=== PATIENT | female | born 1965 | race African-American/Black ===

== ENCOUNTER → 2016-12-11 | Outpatient (CLI) | payer BC ==
[2016-12-11 16:00] LABS: HEMATOCRIT 25.5 % (36.0-47.0); HEMOGLOBIN 8.4 g/dL (12.0-15.5); HGB HCT DIFFERENCE -0.3; MEAN CORPUSCULAR HEMOGLOBIN 28.9 pg (27.0-33.4); MEAN CORPUSCULAR HGB CONC 32.9 g/dL (32.0-36.0); MEAN CORPUSCULAR VOLUME 88 fl (80-97); WHITE BLOOD COUNT 1.7 10^3/uL (4.0-10.5)
== END ==
LOC: OD 14:50
PROVIDERS: ATTEND Internal Medicine Medical Oncology
DX: C92.10 Chronic myeloid leukemia, BCR/ABL-positive, not having achieved remission (principal); D70.9 Neutropenia, unspecified
CPT/HCPCS: 36415; 86850; 86870; 86900; 86901

== ENCOUNTER → 2019-04-15 | Outpatient (CLI) | payer BC ==
[2019-04-15 16:26] LABS: INTERNATIONAL RATION (INR) 1.04; PROTHROMBIN TIME 13.6 SEC (11.4-15.4)
== END ==
LOC: OD 15:30
PROVIDERS: ATTEND Internal Medicine
DX: I48.91 Unspecified atrial fibrillation (principal)
CPT/HCPCS: 36415; 85610

== ENCOUNTER → 2019-04-20 | Outpatient (CLI) | payer BC ==
[2019-04-20 11:44] LABS: INTERNATIONAL RATION (INR) 1.16; PROTHROMBIN TIME 14.8 SEC (11.4-15.4)
== END ==
LOC: OD 10:35
PROVIDERS: ATTEND Internal Medicine
DX: I48.91 Unspecified atrial fibrillation (principal)
CPT/HCPCS: 36415; 85610

== ENCOUNTER → 2019-04-23 | Outpatient (CLI) | payer BC ==
[2019-04-23 11:45] LABS: PROTHROMBIN TIME 20.2 SEC (11.4-15.4)
== END ==
LOC: OD 11:04
PROVIDERS: ATTEND Internal Medicine
DX: I48.91 Unspecified atrial fibrillation (principal)
CPT/HCPCS: 36415; 85610

== ENCOUNTER → 2019-04-30 | Outpatient (CLI) | payer BC ==
[2019-04-30 15:28] LABS: INTERNATIONAL RATION (INR) 2.45
== END ==
LOC: OD 11:10
PROVIDERS: ATTEND Internal Medicine
DX: I48.91 Unspecified atrial fibrillation (principal)
CPT/HCPCS: 36415; 85610; 85730

== ENCOUNTER → 2019-05-06 | Outpatient (CLI) | payer BC ==
[2019-05-06 10:57] LABS: INTERNATIONAL RATION (INR) 2.72; PROTHROMBIN TIME 29.4 SEC (11.4-15.4)
== END ==
LOC: OD 10:00
PROVIDERS: ATTEND Internal Medicine
DX: I48.91 Unspecified atrial fibrillation (principal)
CPT/HCPCS: 36415; 85610

== ENCOUNTER → 2019-05-14 | Outpatient (CLI) | payer BC ==
[2019-05-14 12:47] LABS: INTERNATIONAL RATION (INR) 2.21; PROTHROMBIN TIME 24.9 SEC (11.4-15.4)
== END ==
LOC: OD 11:31
PROVIDERS: ATTEND Internal Medicine
DX: I48.91 Unspecified atrial fibrillation (principal)
CPT/HCPCS: 36415; 85610

== ENCOUNTER → 2019-06-19 | Outpatient (CLI) | payer BC ==
[2019-06-19 10:22] LABS: INTERNATIONAL RATION (INR) 2.08; PROTHROMBIN TIME 23.7 SEC (11.4-15.4)
== END ==
LOC: OD 09:18
PROVIDERS: ATTEND Internal Medicine
DX: I48.91 Unspecified atrial fibrillation (principal)
CPT/HCPCS: 36415; 85610

== ENCOUNTER → 2019-07-16 | Outpatient (CLI) | payer BC ==
[2019-07-16 14:25] LABS: INTERNATIONAL RATION (INR) 2.13; PROTHROMBIN TIME 24.2 SEC (11.4-15.4)
== END ==
LOC: OD 13:43
PROVIDERS: ATTEND Internal Medicine
DX: I48.91 Unspecified atrial fibrillation (principal)
CPT/HCPCS: 36415; 85610

== ENCOUNTER → 2019-08-12 | Outpatient (CLI) | payer BC ==
[2019-08-12 13:20] LABS: INTERNATIONAL RATION (INR) 1.44; PROTHROMBIN TIME 17.7 SEC (11.4-15.4)
== END ==
LOC: OD 11:48
PROVIDERS: ATTEND Internal Medicine
DX: I48.91 Unspecified atrial fibrillation (principal)
CPT/HCPCS: 36415; 85610

== ENCOUNTER → 2019-09-14 | Outpatient (CLI) | payer BC ==
[2019-09-14 10:31] LABS: INTERNATIONAL RATION (INR) 2.31; PROTHROMBIN TIME 25.8 SEC (11.4-15.4)
== END ==
LOC: OD 09:14
PROVIDERS: ATTEND Internal Medicine
DX: I48.91 Unspecified atrial fibrillation (principal)
CPT/HCPCS: 36415; 85610

== ENCOUNTER → 2019-10-12 | Outpatient (CLI) | payer BC ==
[2019-10-12 10:35] LABS: INTERNATIONAL RATION (INR) 1.47
== END ==
LOC: OD 09:19
PROVIDERS: ATTEND Internal Medicine
DX: I48.91 Unspecified atrial fibrillation (principal)
CPT/HCPCS: 36415; 85610

== ENCOUNTER → 2019-11-19 | Outpatient (CLI) | payer BC ==
[2019-11-19 13:05] LABS: INTERNATIONAL RATION (INR) 2.47; PROTHROMBIN TIME 26.7 SEC (11.4-15.4)
== END ==
LOC: OD 11:34
PROVIDERS: ATTEND Internal Medicine
DX: I48.91 Unspecified atrial fibrillation (principal)
CPT/HCPCS: 36415; 85610

== ENCOUNTER → 2019-12-14 | Outpatient (CLI) | payer BC ==
[2019-12-14 11:30] LABS: INTERNATIONAL RATION (INR) 2.52; PROTHROMBIN TIME 27.1 SEC (11.4-15.4)
== END ==
LOC: OD 10:27
PROVIDERS: ATTEND Internal Medicine
DX: I48.91 Unspecified atrial fibrillation (principal)
CPT/HCPCS: 36415; 85610

== ENCOUNTER → 2020-02-15 | Outpatient (CLI) | payer BC ==
[2020-02-15 11:58] LABS: INTERNATIONAL RATION (INR) 1.38; PROTHROMBIN TIME 17.1 SEC (11.4-15.4)
== END ==
LOC: OD 10:47
PROVIDERS: ATTEND Internal Medicine
DX: I48.91 Unspecified atrial fibrillation (principal)
CPT/HCPCS: 36415; 85610

== ENCOUNTER → 2020-04-05 | Outpatient (CLI) | payer BC ==
[2020-04-05 11:59] LABS: INTERNATIONAL RATION (INR) 2.08; PROTHROMBIN TIME 23.4 SEC (11.4-15.4)
== END ==
LOC: OD 11:12
PROVIDERS: ATTEND Internal Medicine
DX: O22.30 Deep phlebothrombosis in pregnancy, unspecified trimester (principal); Z79.01 Long term (current) use of anticoagulants; Z3A.00 Weeks of gestation of pregnancy not specified
CPT/HCPCS: 36415; 85610